=== PATIENT | male | born 1985 | race African-American/Black ===

== ENCOUNTER 2021-06-26 22:12 | Emergency (ER) | payer SELFPAY ==
[~2021-06-26] VITALS: Ht 182.9 cm; Wt 84.0 kg
[2021-06-26 22:17] VITALS: BP 138/92
[2021-06-26] MEDS ORDERED: ONDANSETRON 4MG ODT PO STA (22:50)
== END 2021-06-27 03:21 | disposition left against medical advice (07) ==
LOC: ER 22:12
DX: R11.2 Nausea with vomiting, unspecified (principal); Z53.21 Procedure and treatment not carried out due to patient leaving prior to being seen by health care provider; R00.0 Tachycardia, unspecified
CPT/HCPCS: 93005